=== PATIENT | male | born 1950 | race Caucasian/White ===

== ENCOUNTER 2017-08-07 12:40 | Day surgery (SDC) | payer OTHER, BC ==
[2017-08-07] MEDS ORDERED: NS 1,000 ML IV ONE (12:44)
[2017-08-07] MEDS ORDERED: diphenhydrAMINE 25 MG CAP PO ONE ×2 (12:44→13:09)
[2017-08-07] MEDS ORDERED: FAMOTIDINE 20 MG TAB PO ONE (12:44)
[2017-08-07] MEDS ORDERED: DIAZEPAM 5 MG TAB PO ONE (12:44)
[2017-08-07] MEDS ORDERED: ASPIRIN EC 325 MG TAB PO ONE ×2 (12:44→13:09)
--- NOTE | 2017-08-07 13:00 | CPEKG ---
Heart Rate: 84 RR Interval: 714 P-R Interval: 144 QRSD Interval: 86 QT Interval: 360 QTC Interval: 426 P Bruce: 72 QRS Bruce: 2 T Wave Bruce: 96 EKG Severity - NORMAL ECG - EKG Impression: SINUS RHYTHM Electronically Signed By: Mitch Christianson 07-Aug-2017 13:27:58
[2017-08-07] MEDS ORDERED: FAMOTIDINE 20 MG TAB ONE (13:09)
[2017-08-07] MEDS ORDERED: DIAZEPAM 5 MG TAB ONE (13:09)
[2017-08-07 13:11] LABS: PLATELET COUNT 233 10^3/uL (150-400)
[2017-08-07 13:21] LABS: INR 1.02 (0.83-1.16); PROTIME(PATIENT) 13.6 SEC (12.0-15.0)
[2017-08-07] MEDS ORDERED: fentaNYL 100 MCG/2 ML INJ ONE (14:07)
[2017-08-07] MEDS ORDERED: IOPAMIDOL (ISOVUE-370) 150 ML BTL IV ONE (14:07)
[2017-08-07] MEDS ORDERED: MIDAZOLAM 2 MG/2 ML VIAL ONE (14:07)
[2017-08-07] MEDS ORDERED: LIDOCAINE 1% 300 MG/30 ML SDV ONE (14:07)
[2017-08-07] MEDS ORDERED: VERAPAMIL 5 MG/2 ML VIAL ONE (14:07)
[2017-08-07] MEDS ORDERED: HEPARIN 10,000 UNIT/10 ML MDV (1,000 UNIT/ML) ONE (14:07)
--- NOTE | 2017-08-07 14:58 | PDPROPOC ---
Sedation Plan of Care Sedation Plan of Care: vital signs stable, mental status noted, patient educated of risks, benefits, alternatives, patient can tolerate sedation ASA Classification: ASA 1 Planned drugs: fentanyl, midazolam Mallampati Score: Class 1 Mallampati Reference Image: Patient passed 3-3-2 rule?: Yes
--- NOTE | 2017-08-07 14:58 | PDHPUP ---
History & Physical Update H&P update statement: This history and physical update is based on an assessment of the patient which was completed after admission or registration (within 24 hours), but prior to the surgery/procedure. H&P update: H&P reviewed & patient examined, no change in patient's condition since H&P completed
[2017-08-07] MEDS ORDERED: ATROPINE SULFATE 1 MG/10 ML SYR IVP PRN (15:33)
[2017-08-07] MEDS ORDERED: ONDANSETRON 4 MG/2 ML VIAL IVP PRN (15:33)
[2017-08-07] MEDS ORDERED: HYDROCODONE/APAP 5/325 TAB PO PRN (15:33)
[2017-08-07] MEDS ORDERED: NITROGLYCERIN 0.4 MG BTL SL PRN (15:33)
--- NOTE | 2017-08-07 15:49 | PDDXCAT ---
Diagnostic Cath Note - . Date: 08/07/17 [place] Operator: Leonard Indication: other (Abnormal coronary calcium score with left main calcification. ) - Procedure Access: right wrist Procedure: left heart catheterization, coronary angiography, left ventriculogram - Materials Left Heart Cath size: 5F Left Heart Cath materials: other ([employer] and [employer]) - Findings-Left Heart Catheterization LM: Normal. LAD: Diffuse disease of the proximal to mid-LAD with multiple areas up to 40-50% . LCX: Diffuse mild to moderate irregularities. RCA: Diffuse disease with multiple areas up to 40-50%. EDP: 16 mmHg LVEF: 65% Wall motion: Normal. Complications: None Estimated blood loss: <50ml Closure method: TR Band Assessment: 1) Normal LV systolic function. 2) CAD as described above.
[2017-08-08] MEDS ORDERED: ATORVASTATIN CALCIUM 10 MG TAB PO SCH (09:00)
== END 2017-08-07 18:30 | disposition home or self-care (01) ==
LOC: FCATH 12:40 → EDBD 14:00 → FCATH 18:30
PROVIDERS: ATTEND Internal Medicine Interventional Cardiology
DX: I25.10 Atherosclerotic heart disease of native coronary artery without angina pectoris (principal); I71.2 Thoracic aortic aneurysm, without rupture; E78.5 Hyperlipidemia, unspecified; Z79.82 Long term (current) use of aspirin; Z87.891 Personal history of nicotine dependence; Z82.49 Family history of ischemic heart disease and other diseases of the circulatory system
CPT/HCPCS: 93005; 93458; C1769; J1644; J2250; J3010; Q9967